=== PATIENT | female | born 1975 | race Caucasian/White ===

== ENCOUNTER 2018-06-02 15:07 | Outpatient (CLI) | payer OTHER ==
[2018-06-02] MEDS ORDERED: Gadobenate Dimeglumine 529 MG/1 ML (20ML VIAL) ONE (16:03)
--- NOTE | 2018-06-02 18:34 | MRI ---
MRI OF BRAIN WITH AND WITHOUT CONTRAST MRI IAC WITH AND WITHOUT CONTRAST 06/02/18 INDICATIONS: Sensorineural hearing loss. FINDINGS: The ventricular system is normal in size. Septum pellucidum and third ventricle are midline. There is no pathologic intra-axial mass. There are multiple focal punctate signal abnormalities of the bilate ral cerebral white matter. Thin sectioning imaging of each internal auditory canal reveals appropriate signal. There is no patho logic enhancement of either CP angle cistern. Imaged skull base flow voids are patent. IMPRESSION: 1. No acute intracranial abnormalities. 2. No pathologic enhancement or evidence of mass of either CP angle cistern. 3. Multifocal punctate signal abnormalities of bilateral cerebral white matter which may represe nt minimal chronic ischemic disease, which would be advanced for patient's age. Alternatively, findin gs could relate to sequela from vasculopathy/vasculitis, or infectious/inflammatory foci. Distributio n of findings is not typical for demyelinating process. Recommend clinical correlation and imaging fo llowup may also be obtained to exclude progression. POS: [facility]
== END 2018-06-02 15:08 | disposition home or self-care (01) ==
LOC: BICMRI 15:07
PROVIDERS: ATTEND Otolaryngology
DX: H90.42 Sensorineural hearing loss, unilateral, left ear, with unrestricted hearing on the contralateral side (principal); H93.12 Tinnitus, left ear; R42 Dizziness and giddiness; R90.82 White matter disease, unspecified
CPT/HCPCS: 70553; A9579